=== PATIENT | male | born 1965 | race Caucasian/White ===

== ENCOUNTER 2017-08-05 12:01 | Observation (INO) | payer OTHER ==
[2017-08-05 13:10] LABS: Albumin 4.4 g/dL (3.4-5.0); BUN/Creatinine Ratio 14.1; Bilirubin, Total 0.4 mg/dL (0.2-1.0); Magnesium 2.4 mg/dL (1.6-2.6); Potassium 3.9 mmol/L (3.5-5.1); Total Protein 7.8 g/dL (6.4-8.2)
[2017-08-05 13:12] LABS: Basophils # (auto) 0.1 uL; Basophils % (auto) 0.6 % (0.0-2.0); Eosinophils # (auto) 0 uL; Eosinophils % (auto) 0.3 % (0.0-7.0); Hematocrit 48.5 % (41.0-53.0); Hemoglobin 17.1 g/dL (13.5-17.5); Lymphocytes # (auto) 2.2 uL; Lymphocytes % (auto) 16.9 % (10.0-50.0); Mean Corpuscular Hemoglobin 33.4 pg (28.0-32.0); Mean Corpuscular Hgb Conc. 35.4 g/dL (32.0-36.0); Mean Corpuscular Volume 94.4 fL (80.0-100.0); Mean Platelet Volume 10.3 fL (6.9-10.8); Monocytes % (auto) 7.8 % (0.0-12.0); Neutrophils # (auto) 9.5 uL; Neutrophils % (auto) 74.4 % (37.0-80.0); Nucleated Red Blood Cells % 0.1 %; Platelet Count (auto) 186 10^3/uL (140-450); Red Cell Distribution Width 13.1 % (11.8-14.3); White Blood Cell 12.7 10^3/uL (4.4-10.8)
[2017-08-05] MEDS ORDERED: ASPirin-EC 81 mg tab PO ONE (16:30)
[2017-08-05 17:01] LABS: B-Type Natriuretic Peptide 11.44 pg/mL (0-100)
[2017-08-05 17:11] LABS: Temperature: 23.1 C (20.0-25.0)
[2017-08-05 19:20] VITALS: BP 132/94
== END 2017-08-05 21:25 | disposition left against medical advice (07) | DRG 311 ==
LOC: ER 12:01 → OVERFLOW 16:17 → ER 21:25
PROVIDERS: ADMIT Family Medicine; ATTEND Family Medicine
DX: I20.0 Unstable angina (principal); G45.8 Other transient cerebral ischemic attacks and related syndromes; I10 Essential (primary) hypertension; F17.210 Nicotine dependence, cigarettes, uncomplicated; G89.29 Other chronic pain; M54.9 Dorsalgia, unspecified; Z82.49 Family history of ischemic heart disease and other diseases of the circulatory system
CPT/HCPCS: 36415; 70450; 71020; 80053; 83735; 83880; 84443; 84484; 85025; 85379; 85610; 85730; 93005; 99285; G0378

== ENCOUNTER 2017-08-06 14:21 | Emergency (ER) | payer OTHER ==
[~2017-08-06] VITALS: Ht 185.4 cm; Wt 93.0 kg
[2017-08-06 14:43] VITALS: BP 138/79
== END 2017-08-06 14:43 | disposition left against medical advice (07) ==
LOC: ER 14:21
DX: R07.9 Chest pain, unspecified (principal); R06.02 Shortness of breath; Z53.21 Procedure and treatment not carried out due to patient leaving prior to being seen by health care provider